=== PATIENT | male | born 1945 | race African-American/Black ===

== ENCOUNTER 2025-06-25 14:02 | Inpatient (IN) | payer MEDICARE, MEDICAID ==
[~2025-06-25] VITALS: Ht 177.8 cm; Wt 74.4 kg
[2025-06-25 14:06] VITALS: O2SAT 98
[2025-06-25 15:12] LABS: BASOPHILS % 0.4 % (0.0-2.0); EOSINOPHILS % 3.6 % (0.0-5.0); HEMATOCRIT. 35.8 % (42.0-52.0); HEMOGLOBIN. 11.8 g/dL (14.0-18.0); LYMPHOCYTES % 21.5 % (20.0-50.0); MEAN PLATELET VOLUME 8.2 fl (7.4-10.4); MONOCYTES % 7.2 % (2.0-8.0); NEUTROPHILS % 67.3 % (40.0-76.0); PLATELET 283 x1000/uL (130-400); RED BLOOD CELL COUNT 3.99 mill/uL (4.7-6.1); RED CELL DISTRIBUTION WIDTH 16.6 % (11.6-14.6)
[2025-06-25 15:17] LABS: CREATININE 0.8 mg/dL (0.6-1.3)
[2025-06-25 15:18] LABS: TROPONIN I HIGH SENSITIVITY 7 ng/L (3.0-53); UREA NITROGEN BLOOD 13 mg/dL (9-23)
[2025-06-25 15:19] LABS: ASPARTATE AMINOTRANSFERASE 14 IU/L (<34); INR 1.0
[2025-06-25 15:20] LABS: BILIRUBIN DIRECT 0.3 mg/dL (<=3.0); BILIRUBIN TOTAL 0.8 mg/dL (0.1-1.0); PROTEIN TOTAL 6.8 g/dL (6.0-8.3)
[2025-06-25 16:15] LABS: INFLUENZA TYPE A Presumptive Negative (Pres. Neg.)
[2025-06-25 16:16] LABS: INFLUENZA TYPE B Presumptive Negative (Pres. Neg.)
[2025-06-25 16:17] LABS: RESPIRATORY SYNCYTIAL VIRUS Not Detected (Not Detectd)
[2025-06-25] MEDS: MAGNESIUM 2 G PREMIX 50 ML IV ONE (16:58)
[2025-06-25 18:06] LABS: TROPONIN I HIGH SENSITIVITY 6 ng/L (3.0-53)
[2025-06-25 20:00] VITALS: BP 148/77; PULSE 68; RESP 17; TEMP 36.3; O2SAT 98
[2025-06-25] MEDS ORDERED: MAGNESIUM/ALUMINUM HYDROXIDE/SIMETHICONE 30ML UDC PO PRN (20:45)
[2025-06-25] MEDS ORDERED: ONDANSETRON HCL 4MG/2ML INJ IV PRN (20:45)
[2025-06-25] MEDS ORDERED: ACETAMINOPHEN 325MG TABLET PO PRN ×2 (20:45)
[2025-06-25] MEDS ORDERED: DEXTROSE 50% WATER 50ML SYRINGE IV PRN (21:00)
[2025-06-25] MEDS: BLOOD SUGAR DIAGNOSTIC STRIP TEST SCH (21:35)
[2025-06-25 21:44] VITALS: BP 148/77; PULSE 68; RESP 17; TEMP 36.3624
[2025-06-25] MEDS: INSULIN LISPRO 100 UNITS/ML SUBCUT SCH (23:22)
[2025-06-25] MEDS: PANTOPRAZOLE 40MG DR TABLET PO SCH (23:37)
[2025-06-26] VITALS: BP 147/67; PULSE 71; RESP 19; TEMP 36.3; O2SAT 99
[2025-06-26] MEDS ORDERED: *PATIENT'S OWN MEDICATION STORAGE XX SCH (03:15)
[2025-06-26 04:00] VITALS: BP 162/78; PULSE 75; RESP 18; TEMP 36.3; O2SAT 97
[2025-06-26 06:42] LABS: CLARITY URINE CLEAR (CLEAR); COLOR URINE YELLOW (YELLOW); GLUCOSE URINE NEGATIVE (NEGATIVE); KETONES URINE TRACE (NEGATIVE); LEUKOCYTE ESTERASE URINE NEGATIVE (NEGATIVE); NITRITE URINE NEGATIVE (NEGATIVE); OCCULT BLOOD URINE NEGATIVE (NEGATIVE); PH URINE 7.5 (4.5-8.0); PROTEIN URINE NEGATIVE (NEGATIVE); SPECIFIC GRAVITY URINE 1.008 (1.005-1.030); UROBILINOGEN URINE 1.0 E.U./dL (0.2-1.0)
[2025-06-26 06:54] LABS: *AMPHETAMINES SCREEN URINE NEGATIVE (NEGATIVE); *BARBITURATES SCREEN URINE NEGATIVE (NEGATIVE); *BENZODIAZEPINES SCREEN URINE NEGATIVE (NEGATIVE); *COCAINE SCREEN URINE NEGATIVE (NEGATIVE); CANNABINOID URINE SCREEN NEGATIVE (NEGATIVE); ECSTASY MDMA SCREEN URINE NEGATIVE (NEGATIVE); METHADONE URINE SCREEN NEGATIVE (NEGATIVE); OPIATES URINE SCREEN NEGATIVE (NEGATIVE); PHENCYCLIDINE URINE SCREEN NEGATIVE (NEGATIVE)
[2025-06-26 08:00] VITALS: BP 172/87; PULSE 77; RESP 16; TEMP 36.3; O2SAT 98
[2025-06-26] MEDS: ENOXAPARIN 40MG/0.4ML SYR SUBCUT SCH (08:42)
[2025-06-26] MEDS: AMLODIPINE 10MG TABLET PO SCH (08:42)
[2025-06-26 09:11] LABS: T4 FREE 1.3 ng/dL (0.89-1.76)
[2025-06-26] MEDS: MAGNESIUM 2 G PREMIX 50 ML IV SCH (11:57)
[2025-06-26 12:00] VITALS: BP 147/78; PULSE 82; RESP 16; TEMP 36.1; O2SAT 98
[2025-06-26 16:00] VITALS: BP 143/85; PULSE 84; RESP 16; TEMP 36.6; O2SAT 98
[2025-06-26 20:00] VITALS: BP 146/81; PULSE 81; RESP 18; TEMP 36.7; O2SAT 98
[2025-06-26] MEDS: LORATADINE 10MG TABLET PO SCH (22:15)
[2025-06-26] MEDS: LATANOPROST 0.005% OPHTH DROPS 2.5ML BOTHEYE SCH (23:35)
[2025-06-27] VITALS: BP 140/85; PULSE 80; RESP 20; TEMP 36.7; O2SAT 98
[2025-06-27 04:00] VITALS: BP 144/82; PULSE 82; RESP 20; TEMP 36.7; O2SAT 98
[2025-06-27 08:00] VITALS: BP 171/98; PULSE 98; RESP 18; TEMP 36.1; O2SAT 99
[2025-06-27 12:00] VITALS: BP 146/68; PULSE 90; RESP 17; TEMP 36.1; O2SAT 98
[2025-06-27 16:00] VITALS: BP 152/86; PULSE 90; RESP 17; RESP 18; TEMP 36.4; TEMP 36.5; O2SAT 97; O2SAT 98
[2025-06-28] VITALS: BP 124/74; PULSE 83; RESP 18; TEMP 36.4; O2SAT 99
[2025-06-28 08:00] VITALS: BP 153/89; PULSE 76; RESP 17; TEMP 36.3; O2SAT 97
[2025-06-28 12:00] VITALS: BP 141/78; PULSE 74; RESP 16; TEMP 36.6; O2SAT 96
[2025-06-28 16:00] VITALS: BP 145/86; PULSE 75; RESP 17; RESP 18; TEMP 36.5; O2SAT 96
[2025-06-28 20:00] VITALS: BP 140/79; PULSE 77; RESP 15; TEMP 36.4; O2SAT 97
[2025-06-29] VITALS: BP 137/85; PULSE 79; RESP 13; TEMP 36.3; O2SAT 96
[2025-06-29 04:00] VITALS: BP 160/83; PULSE 69; RESP 16; TEMP 35.9; O2SAT 98
[2025-06-29] MEDS: CLONIDINE 0.1MG TABLET PO PRN (04:07)
[2025-06-29 08:00] VITALS: BP 133/81; PULSE 74; RESP 18; TEMP 36.2; O2SAT 100
[2025-06-29 12:00] VITALS: BP 135/72; PULSE 74; RESP 18; TEMP 36.4; O2SAT 97
[2025-06-29 15:02] VITALS: BP 135/72; PULSE 74; RESP 18; TEMP 97.1
[2025-06-29 15:43] VITALS: BP 135/72; PULSE 74; RESP 18; TEMP 97.1
== END 2025-06-29 16:59 | disposition home or self-care (01) | DRG 641 ==
LOC: ER 14:02 → 7EST 17:23 → EDBEDREQ 17:30 → EDBEDREQTM 17:30
PROVIDERS: ADMIT Hospitalist; ATTEND Hospitalist
DX: E83.42 Hypomagnesemia (principal); Z20.822 Contact with and (suspected) exposure to COVID-19; D64.9 Anemia, unspecified; E11.9 Type 2 diabetes mellitus without complications; I10 Essential (primary) hypertension; E78.5 Hyperlipidemia, unspecified; H40.9 Unspecified glaucoma; Z87.891 Personal history of nicotine dependence; Z63.4 Disappearance and death of family member; Z79.84 Long term (current) use of oral hypoglycemic drugs
CPT/HCPCS: 36415; 71045; 80048; 80076; 80305; 80320; 81003; 82140; 82962; 83735; 84439; 84443; 84481; 84484; 85025; 87420; 87426; 87804; 93005; 96365; 97162; 97166; 99285; J1650; J1815; J3475; G0480